=== PATIENT | male | born 1965 | race Caucasian/White ===

== ENCOUNTER → 2018-09-18 | Outpatient (CLI) | payer MEDICAID ==
[~2018-09-18] MED LIST: ALBU18HF INH; ALBUTEROL INH; ALLO300T80; AVALOX; CARV6.2512 PO; CELLCEPT; FLUT1DIS3 INH; GUAI118L3 PO; GUAI600T31 PO; HYDR-3240 PO; IPRA3AMP18 INH; LATA2.5D2; LEVA0.313 INH; MONT10TA6 PO; MOXI400T PO; MYCO500T PO; ONDA4TAB7 PO; OSEL75CA PO; PRED10TA14 PO; PRED20TA; REGADENOSON 0.4 MG/5 ML SYRINGE ONE; TACR0.5C4; TACR0.5C4 PO; TYLENOL WITH CODEINE; VALS80TA3 PO
== END | disposition home or self-care (01) ==
LOC: CFH 07:34
PROVIDERS: ATTEND Internal Medicine Cardiovascular Disease
DX: R07.89 Other chest pain (principal); I39 Endocarditis and heart valve disorders in diseases classified elsewhere
CPT/HCPCS: 78452; 93017; A9502; J2785

== ENCOUNTER → 2020-03-19 | Outpatient (CLI) | payer MEDICAID ==
[~2020-03-19] MED LIST changes: -OSEL75CA PO; +OSEL75CA26 PO
== END | disposition home or self-care (01) ==
LOC: CFH 12:28
PROVIDERS: ATTEND Nurse Practitioner Family
DX: R07.89 Other chest pain (principal)
CPT/HCPCS: 78452; 93017; A9502; J2785